=== PATIENT | male | born 1985 | race Caucasian/White ===

== ENCOUNTER 2022-05-29 13:11 | Emergency (ER) | payer MEDICAID ==
[~2022-05-29] VITALS: Ht 175.3 cm; Wt 82.0 kg
[2022-05-29 16:16] LABS: BASOPHILS % 0.5 % (0.0-2.0); HEMATOCRIT. 41.3 % (42.0-52.0); HEMOGLOBIN. 14.3 g/dL (14.0-18.0); LYMPHOCYTES % 13.8 % (20.0-50.0); MEAN CORPUSCULAR HEMOGLOBIN 30.4 pg (28.0-32.0); MEAN CORPUSCULAR VOLUME 87.9 fL (80.0-94.0); MEAN PLATELET VOLUME 8.9 fl (7.4-10.4); NEUTROPHILS % 76.7 % (40.0-76.0); PLATELET 244 x1000/uL (130-400); RED CELL DISTRIBUTION WIDTH 13.4 % (11.6-14.6)
[2022-05-29 16:30] LABS: CHLORIDE 101 mEq/L (98-107)
[2022-05-29 18:15] VITALS: BP 126/78
== END 2022-05-29 18:27 | disposition home or self-care (01) ==
LOC: ER 13:11
DX: R07.89 Other chest pain (principal); F41.9 Anxiety disorder, unspecified
CPT/HCPCS: 36415; 71045; 80053; 84484; 85025; 93005; 99285